=== PATIENT | male | born 1990 | race Two or more races ===

== ENCOUNTER 2018-06-15 13:26 | Emergency (ER) | payer MEDICAID ==
[~2018-06-15] VITALS: Ht 180.3 cm; Wt 104.3 kg
[2018-06-15 14:19] VITALS: BP 125/77
== END 2018-06-15 15:32 | disposition home or self-care (01) ==
LOC: ER 13:26
DX: S09.90XA Unspecified injury of head, initial encounter (principal); W22.8XXA Striking against or struck by other objects, initial encounter; Y93.89 Activity, other specified; Y92.89 Other specified places as the place of occurrence of the external cause; Y99.8 Other external cause status
CPT/HCPCS: 70450

== ENCOUNTER 2019-08-08 19:17 | Emergency (ER) | payer SELFPAY ==
[~2019-08-08] VITALS: Ht 180.3 cm; Wt 102.1 kg
[2019-08-08] MEDS ORDERED: IBUPROFEN 800 MG TAB PO ONE (22:00)
[2019-08-08 22:05] VITALS: BP 138/70
== END 2019-08-08 23:16 | disposition home or self-care (01) ==
LOC: ER 19:18
DX: M54.9 Dorsalgia, unspecified (principal); F17.210 Nicotine dependence, cigarettes, uncomplicated
CPT/HCPCS: 72070; 72100

== ENCOUNTER 2021-02-06 21:35 | Emergency (ER) | payer MEDICAID, OTHER ==
[~2021-02-06] VITALS: Ht 182.9 cm; Wt 108.9 kg
[2021-02-07] MEDS ORDERED: KETOROLAC TROMETH 60MG/2ML VIAL IM ONE (02:15)
[2021-02-07 03:43] VITALS: BP 119/72
== END 2021-02-07 05:20 | disposition home or self-care (01) ==
LOC: ER 22:00
DX: M54.2 Cervicalgia (principal); R51.9 Headache, unspecified; M54.5 Low back pain; F17.210 Nicotine dependence, cigarettes, uncomplicated; V49.59XA Passenger injured in collision with other motor vehicles in traffic accident, initial encounter; Y93.89 Activity, other specified; Y92.488 Other paved roadways as the place of occurrence of the external cause; Y99.8 Other external cause status
CPT/HCPCS: 70450; 72100; 72125; 96372; 99285; J1885

== ENCOUNTER 2022-06-02 21:55 | Emergency (ER) | payer MEDICAID, OTHER ==
[~2022-06-02] VITALS: Ht 177.8 cm; Wt 104.3 kg
[2022-06-02 23:45] LABS: Urine Bacteria NONE SEEN /hpf (None Seen); Urine Blood Negative /uL (Negative); Urine Hyaline Cast FEW /lpf (0 - 2); Urine Mucus FEW (None Seen); Urine WBC <1 /hpf (0 - 3)
[2022-06-03] MEDS ORDERED: KETOROLAC TROMETH 30 MG/ML 1ML VIAL IM ONE
[2022-06-03 00:33] LABS: Basophils # (auto) 0.1 10 ^3/uL (0-0.2); Basophils % (auto) 0.7 % (0.0-2.0); Eosinophils # (auto) 0.1 10 ^3/uL (0-0.8); Eosinophils % (auto) 1.8 % (0.0-7.0); Hematocrit 46.3 % (41.0-53.0); Hemoglobin 15.9 g/dL (13.5-17.5); Lymphocytes # (auto) 2.6 10 ^3/uL (0.4-5.4); Lymphocytes % (auto) 32.6 % (10.0-50.0); Mean Corpuscular Hemoglobin 29.8 pg (28.0-32.0); Mean Corpuscular Hgb Conc. 34.3 g/dL (32.0-36.0); Mean Corpuscular Volume 86.7 fL (80.0-100.0); Monocytes # (auto) 0.6 10 ^3/uL (0-1.3); Monocytes % (auto) 6.8 % (0.0-12.0); Neutrophils # (auto) 4.7 10 ^3/uL (1.6-8.6); Neutrophils % (auto) 58.1 % (37.0-80.0); Nucleated Red Blood Cells % 0.2 %; Red Blood Cells 5.35 10^6/uL (4.5-5.90); Red Cell Distribution Width 13.8 % (11.8-14.3); White Blood Cell 8.1 10^3/uL (4.4-10.8)
[2022-06-03 00:43] LABS: INR 0.99 (0.9-1.15); Partial Thromboplastin Time 30.7 sec (24.6-33.4)
[2022-06-03 00:44] LABS: Albumin 4.2 g/dL (3.4-5.0); BUN/Creatinine Ratio 12.9; Calcium 9.2 mg/dL (8.5-10.1); Magnesium 2.4 mg/dL (1.6-2.6); Potassium 3.9 mmol/L (3.5-5.1)
[2022-06-03 00:47] LABS: Bilirubin, Total 0.6 mg/dL (0.2-1.0); Total Protein 7.5 g/dL (6.4-8.2)
[2022-06-03 03:28] VITALS: BP 116/74
== END 2022-06-03 03:30 | disposition home or self-care (01) ==
LOC: ER 21:55
DX: R07.89 Other chest pain (principal); F17.210 Nicotine dependence, cigarettes, uncomplicated
CPT/HCPCS: 36415; 71045; 80053; 81001; 83735; 83880; 84484; 85025; 85610; 85730; 93005

== ENCOUNTER 2022-11-18 02:47 | Emergency (ER) | payer BC, OTHER ==
[~2022-11-18] VITALS: Ht 177.8 cm; Wt 104.5 kg
[2022-11-18 02:56] VITALS: BP 127/72
[2022-11-18 03:07] LABS: Basophils # (auto) 0.1 10 ^3/uL (0-0.2); Basophils % (auto) 0.7 % (0.0-2.0); Eosinophils # (auto) 0.3 10 ^3/uL (0-0.8); Eosinophils % (auto) 2.5 % (0.0-7.0); Hematocrit 48.1 % (41.0-53.0); Hemoglobin 17.1 g/dL (13.5-17.5); Lymphocytes # (auto) 4.4 10 ^3/uL (0.4-5.4); Lymphocytes % (auto) 37.2 % (10.0-50.0); Mean Corpuscular Hemoglobin 30.2 pg (28.0-32.0); Mean Corpuscular Hgb Conc. 35.6 g/dL (32.0-36.0); Mean Corpuscular Volume 84.9 fL (80.0-100.0); Monocytes # (auto) 0.7 10 ^3/uL (0-1.3); Monocytes % (auto) 6.2 % (0.0-12.0); Neutrophils # (auto) 6.3 10 ^3/uL (1.6-8.6); Neutrophils % (auto) 53.4 % (37.0-80.0); Nucleated Red Blood Cells % 0.2 %; Red Blood Cells 5.66 10^6/uL (4.5-5.90); Red Cell Distribution Width 13.6 % (11.8-14.3); White Blood Cell 11.7 10^3/uL (4.4-10.8)
[2022-11-18 03:25] LABS: Albumin 3.7 g/dL (3.4-5.0); Magnesium 2.2 mg/dL (1.6-2.6); Potassium 4.1 mmol/L (3.5-5.1)
[2022-11-18 03:29] LABS: BUN/Creatinine Ratio 10.5 (10.0-20.0); Bilirubin, Total 0.5 mg/dL (0.2-1.0); Total Protein 7.7 g/dL (6.4-8.2)
[2022-11-18 03:32] LABS: Partial Thromboplastin Time 30.1 sec (24.6-33.4)
== END 2022-11-18 04:14 | disposition left against medical advice (07) ==
LOC: ER 02:47
DX: R07.89 Other chest pain (principal); R06.02 Shortness of breath; Z79.899 Other long term (current) drug therapy; Z53.21 Procedure and treatment not carried out due to patient leaving prior to being seen by health care provider
CPT/HCPCS: 36415; 71045; 80053; 83735; 83880; 84484; 85025; 85610; 85730; 93005

== ENCOUNTER 2023-12-27 21:56 | Emergency (ER) | payer OTHER ==
[~2023-12-27] VITALS: Ht 177.8 cm; Wt 126.0 kg
[2023-12-27 21:57] VITALS: BP 134/62; PULSE 90; RESP 20; O2SAT 98
== END 2023-12-28 05:33 | disposition left against medical advice (07) ==
LOC: ER 21:56
DX: R20.2 Paresthesia of skin (principal); Z53.21 Procedure and treatment not carried out due to patient leaving prior to being seen by health care provider